=== PATIENT | female | born 1965 | race Caucasian/White ===

== ENCOUNTER 2017-04-15 23:11 | Emergency (ER) | payer MEDICAID, OTHER, SELFPAY ==
[~2017-04-15] VITALS: Ht 154.9 cm; Wt 68.1 kg
[2017-04-16] MEDS ORDERED: BACT800T5 PO (05:17)
[2017-04-16 05:28] VITALS: BP 118/64
[2017-04-16] MEDS ORDERED: BACTRIM 160MG/800MG DS TAB PO ONE (05:30)
== END 2017-04-16 05:29 | disposition home or self-care (01) ==
LOC: M ED 23:11
DX: L03.011 Cellulitis of right finger (principal); Z88.0 Allergy status to penicillin

== ENCOUNTER → 2017-08-11 | Outpatient (CLI) | payer OTHER ==
[~2017-08-11] MED LIST: BACT800T5 PO
--- NOTE | 2017-08-11 17:01 | REP ---
Right shoulder series: Three views. History: Atypical neuralgia. Findings: Three views of the right shoulder demonstrate normal alignment of the glenohumeral and acromioclavicular joints. No erosive change is seen. No evidence of arthropathy is seen. Visualized right chest is unremarkable. Impression: Negative right shoulder views. Signed by Matty Louie MD 08/11/2017 05:02 P
--- NOTE | 2017-08-11 17:02 | REP ---
Cervical spine series: Limited study, two views. History: Atypical neuralgia. Findings: AP and lateral views of the cervical spine demonstrate that the patient is edentulous. Cervical vertebral body heights are preserved. Alignment is normal. There is some straightening. Minimal disc space narrowing is seen at C5-6 and to a lesser extent C4-5. The C7-T1 disc space is not visible on lateral radiographs because of the shoulders. AP view is unremarkable. Impression: Straightening. Minimal disc space narrowing at C5-6 and C4-5. Otherwise negative. Signed by Matty Louie MD 08/11/2017 05:02 P
[2017-08-11 20:41] LABS: BASO # 0.1 10^3/uL (0.0-0.2); BASO % 1.4 % (0.0-1.0); EOS # 0.9 10^3/uL (0.0-0.50); EOS % 9.4 % (0.0-3.0); IMMATURE GRANULOCYTE % 0.2 % (0-0); LYMPH # 2.9 10^3/uL (1.5-4.5); LYMPH % 31.3 % (24.0-44.0); MEAN CORPUSCULAR HEMOGLOBIN 31.7 pg (27.0-33.0); MEAN CORPUSCULAR HGB CONC 33.7 g/dl (32.0-36.5); MONO # 0.4 10^3/uL (0.0-0.8); MONO % 4.6 % (0.0-5.0); NEUTROPHILS # 4.9 10^3/uL (1.8-7.7); NEUTROPHILS % 53.1 % (36.0-66.0); PLATELET COUNT, AUTOMATED 386 10^3/uL (150-450); RED CELL DISTRIBUTION WIDTH 13.6 % (11.5-14.5); WHITE BLOOD COUNT 9.3 10^3/uL (4.0-10.0)
[2017-08-11 21:01] LABS: VITAMIN B12 LEVEL 747 PG/ML (247-911)
[2017-08-11 21:02] LABS: ALBUMIN/GLOBULIN RATIO 0.98 (1.00-1.93); ALKALINE PHOSPHATASE 71 U/L (45-117); ALT/SGPT 27 U/L (12-78); ANION GAP 7 MEQ/L (8-16); AST/SGOT 14 U/L (7-37); BILIRUBIN,TOTAL 0.2 MG/DL (0.2-1.0); BLOOD UREA NITROGEN 10 MG/DL (7-18); CALCIUM LEVEL 9.2 MG/DL (8.5-10.1); CARBON DIOXIDE LEVEL 28 MEQ/L (21-32); CHLORIDE LEVEL 106 MEQ/L (98-107); CREATININE FOR GFR 0.67 MG/DL (0.55-1.02); GLOMERULAR FILTRATION RATE > 60.0 (>51); GLUCOSE, FASTING 91 MG/DL (70-105); POTASSIUM SERUM 3.8 MEQ/L (3.5-5.1); SODIUM LEVEL 141 MEQ/L (136-145); TOTAL PROTEIN 8.1 GM/DL (6.4-8.2)
[2017-08-12 09:39] LABS: FREE T4 0.73 NG/DL (0.76-1.46)
== END ==
LOC: M WUC 16:14
PROVIDERS: ATTEND Family Medicine Addiction Medicine
DX: M79.2 Neuralgia and neuritis, unspecified (principal)

== ENCOUNTER → 2017-08-11 | Outpatient (CLI) | payer OTHER ==
[2017-08-13 10:39] LABS: HEPATITIS B SURFACE ANTIBODY NEGATIVE (POSITIVE)
[2017-08-13 11:39] LABS: FREE T4 0.75 NG/DL (0.76-1.46)
== END ==
LOC: M WUC 16:20
PROVIDERS: ATTEND Nurse Practitioner Women's Health
DX: Z11.3 Encounter for screening for infections with a predominantly sexual mode of transmission (principal); F51.01 Primary insomnia

== ENCOUNTER 2020-01-22 01:31 | Emergency (ER) | payer BC, OTHER ==
[~2020-01-22] VITALS: Ht 154.9 cm; Wt 67.7 kg
[2020-01-22] MEDS ORDERED: NUVI250T5 PO (01:38)
[2020-01-22] MEDS ORDERED: CYCLOBENZAPRINE 10MG TABLET PO ONE (02:00)
[2020-01-22] MEDS ORDERED: KETOROLAC 60MG 2ML VIAL IM ONE (02:15)
--- NOTE | 2020-01-22 02:49 | REPVR ---
PROCEDURE INFORMATION: Exam: XR Lumbosacral Spine, 4 or 5 Views Exam date and time: 01/22/2020 2:35 AM Age: 54 years old Clinical indication: Low back pain TECHNIQUE: Imaging protocol: XR of the lumbosacral spine, 4 or 5 views. COMPARISON: CR Spine. Lumbosacral, complete 07/28/2015 10:58 AM FINDINGS: Vertebrae: Minimal levoconvex curvature. Vertebral body height and AP alignment is preserved. Mild prevertebral osteophytosis. No acute fracture. Facet joint degenerative changes more prominent inferiorly. Vasculature: Vascular calcification. Soft tissues: Normal. IMPRESSION: No acute osseous abnormality. Electronically signed by: Howie Iglesias On 01/22/2020 02:48:30 AM
[2020-01-22] MEDS ORDERED: OXYCODONE/APAP 5MG/325MG(BULK FOR ED) 1 TABLET PO ONE (03:15)
[2020-01-22] MEDS ORDERED: KETO10TAB PO (03:58)
[2020-01-22] MEDS ORDERED: PERC5TAB12 PO (03:58)
[2020-01-22] MEDS ORDERED: CYCL-707 PO (03:58)
[2020-01-22 04:31] VITALS: BP 123/59
== END 2020-01-22 04:39 | disposition home or self-care (01) ==
LOC: M ED 01:31
DX: M54.5 Low back pain (principal); M62.830 Muscle spasm of back; F17.218 Nicotine dependence, cigarettes, with other nicotine-induced disorders; Z88.0 Allergy status to penicillin; Z91.030 Bee allergy status
CPT/HCPCS: 72110; 80047; 96372; 99283; J1885

== ENCOUNTER → 2025-01-14 | Outpatient (CLI) | payer BC ==
[~2025-01-14] MED LIST changes: +CYCL-707 PO; +KETO10TAB PO; +NUVI250T5 PO; +PERC5TAB12 PO
== END ==
LOC: M RAD 12:47
PROVIDERS: ATTEND Physician Assistant
DX: M79.674 Pain in right toe(s) (principal)